=== PATIENT | female | born 1965 | race African-American/Black ===

== ENCOUNTER 2018-03-08 14:33 | Inpatient (IN) | payer OTHER ==
[2018-03-08 18:31] VITALS: BMI 23.1
--- NOTE | 2018-03-08 20:11 | HP ---
CIWA Score - CIWA Score Nausea/Vomitin-Mild Nausea/No Vomiting Muscle Tremors: 4-Moderate,w/Arms Extend Anxiety: 4-Mod. Anxious/Guarded Agitation: 4-Moderately Restless Paroxysmal Sweats: No Perspiration Orientation: 0-Oriented Tacttile Disturbances: 0-None Auditory Disturbances: 0-None Visual Disturbances: 0-None Headache: 0-None Present CIWA-Ar Total Score: 13 Admission ROS BHS - HPI Chief Complaint: Having alcohol withdrawal. Allergies/Adverse Reactions: Allergies Allergy/AdvReac Type Severity Reaction Status Date / Time No Known Allergies Allergy Verified 03/08/18 19:38 History of Present Illness: History years of alcohol use disorder. Last detox attempt 2014. Exam Limitations: No Limitations - Ebola screening Have you been sick,other than usual withdrawal symptoms: No - Review of Systems Constitutional: Loss of Appetite, Unintentional Wgt. Loss (States lost about 20- 30 lbs in the last 6 months.) EENT: reports: No Symptoms Reported, Dental Problems (Missing some teeth. No dental pain.) Respiratory: reports: No Symptoms reported Cardiac: reports: No Symptoms Reported GI: reports: Constipated (BM's every other day. Brown w/o blood.), Nausea, Poor Appetite : reports: No Symptoms Reported Musculoskeletal: reports: Back Pain (Aching pain lower back about 2-3 months. States the pain is a "8". Increases with streass and improves w/ rest and pain medication.) Integumentary: reports: Pruritus (Skin itches.) Neuro: reports: No Symptoms reported Endocrine: reports: Unexplained Weight Loss Hematology: reports: No Symptoms Reported Psychiatric: reports: No Sypmtoms Reported (Denies suicide or violent ideations. ), Orientated x3 Patient History - Patient Medical History Hx Anemia: No Hx Asthma: No Hx Chronic Obstructive Pulmonary Disease (COPD): No Hx Cancer: No Hx Cardiac Disorders: No Hx Congestive Heart Failure: No Hx Hypertension: No Hx Hypercholesterolemia: No Hx Pacemaker: No HX Cerebrovascular Accident: No Hx Seizures: No Hx Dementia: No Hx Diabetes: No Hx Gastrointestinal Disorders: No Hx Liver Disease: Yes (States hx of cirrhosis. Diagnosed at [facility] in 2017. ) Hx Genitourinary Disorders: No Hx Sexually Transmitted Disorders: No Hx Renal Disease (ESRD): No Hx Thyroid Disease: No Hx Human Immunodeficiency Virus (HIV): No (NEGATIVE) Hx Hepatitis C: Yes (about THREE years ago) Hx Depression: Yes (Denies suicide ideation.) Hx Suicide Attempt: No Hx Bipolar Disorder: No (unknown) Hx Schizophrenia: No - Patient Surgical History Past Surgical History: Yes Hx Neurologic Surgery: No Hx Cataract Extraction: No Hx Cardiac Surgery: No Hx Lung Surgery: No Hx Breast Surgery: No Hx Breast Biopsy: No Hx Abdominal Surgery: No Hx Appendectomy: No Hx Cholecystectomy: No Hx Genitourinary Surgery: No Hx Section: No Hx Orthopedic Surgery: No Hx Hysterectomy: Yes (6 YRS. AGO) Other Surgical History: Partial hysterectomy/ R facial fx sx Anesthesia Reaction: No - PPD History Previous Implant?: Yes Documented Results: Negative w/proof Implanted On Prior [facility] Admission?: Yes Date: 06/18/14 Results: 0 MM PPD to be Administered?: Yes - Reproductive History Patient is a Female of Child Bearing Age (11 -55 yrs old): Yes Last Menstrual Period: 08/15/06 (s/p Hysterectormy) Patient : No - Smoking Cessation Smoking history: Current every day smoker Have you smoked in the past 12 months: Yes Aproximately how many cigarettes per day: 3 Hx Chewing Tobacco Use: No Initiated information on smoking cessation: Yes 'Breaking Loose' booklet given: 03/08/18 - Substance & Tx. History Hx Alcohol Use: Yes Hx Substance Use: Yes Substance Use Type: Alcohol, Cocaine, Marijuana Hx Substance Use Treatment: Yes (Last detox at [facility] in 2014. Was able to maintain sobriety for 3-4 months. ) - Substances Abused Alcohol Route: Oral Frequency: Daily Amount used: $50 IN TOTAL : VODKA BOTTLE , BEER , WINE. Age of first use: 16 Date of Last Use: 03/08/18 Cocaine Route: Oral Frequency: Daily Amount used: $20 Age of first use: 16 Date of Last Use: 03/08/18 Marijuana/Hashish Route: Smoking Frequency: Daily Amount used: $20 Age of first use: 16 Date of Last Use: 03/08/18 Family Disease History - Family Disease History Family Disease History: Other: Mother (PSYCH. PROBLEMS AND ADDICTED TO ETOH), Brother (ADDICTED TO DRUGS) Admission Physical Exam BHS - Vital Signs Vital Signs: Vital Signs - 24 hr 04/20/18 18:29 Temperature 96.5 F L Pulse Rate 70 Respiratory 18 Rate Blood Pressure 131/81 - Physical General Appearance: Yes: Appropriately Dressed, Alcohol on Breath, Tremorous, Anxious HEENTM: Yes: EOMI, Hearing grossly Normal, Normal ENT Inspection, Normocephalic , Normal Voice, ERLIN, Other (Missing multiple teeth. (+) dental caries.) Respiratory: Yes: Within Normal Limits Neck: Yes: Within Normal Limits Breast: Yes: Breast Exam Deferred Cardiology: Yes: Within Normal Limits Abdominal: Yes: Within Normal Limits, Normal Bowel Sounds, Non Tender, Soft Genitourinary: Yes: Within Normal Limits Back: Yes: Normal Inspection (FROM. No point tenderness.) Musculoskeletal: Yes: Within Normal Limits Extremities: Yes: Within Normal Limits Neurological: Yes: Within Normal Limits Integumentary: Yes: Normal Color, Dry (Generalized dry skin. No lesions.) Lymphatic: Yes: Within Normal Limits - Diagnostic (1) Alcohol dependence Current Visit: Yes Status: Acute (2) Cannabis dependence Current Visit: Yes Status: Chronic (3) Cocaine dependence Current Visit: Yes Status: Acute (4) Hepatitis C carrier Current Visit: Yes Status: Chronic (5) LOW BACK PAIN Current Visit: Yes Status: Chronic (6) Nicotine dependence Current Visit: Yes Status: Acute (7) Weight loss Current Visit: Yes Status: Chronic Cleared for Admission [facility] - Detox or Rehab [facility] Level of Care: Medically Managed Detox Regimen/Protocol: Librium [facility] Breath Alcohol Content Breath Alcohol Content: 0.165 Urine Pregancy Test - Result Urine Test Results: Negative- NO Line Present Urine Drug Screen - Results Drug Screen Negative: No Urine Drug Screen Results: THC-Marijuana
[2018-03-08] MEDS ORDERED: IBUPROFEN 400 MG TABLET (FP) PO PRN (21:02)
[2018-03-08] MEDS ORDERED: guaiFENesin/D-METHORPHAN HB 10 ML UNIT-DOSE CUPS PO PRN (21:02)
[2018-03-08] MEDS ORDERED: MENTHOL/PHENOL 1 EACH UD MM PRN (21:02)
[2018-03-08] MEDS ORDERED: ACETAMINOPHEN 325 MG TABLET (FP) PO PRN (21:02)
[2018-03-08] MEDS ORDERED: LOPERAMIDE HCL 2 MG CAPSULE PO PRN (21:02)
[2018-03-08] MEDS ORDERED: P-EPHED 60MG/TRIPROLIDI 2.5MG TABLET PO PRN (21:02)
[2018-03-08] MEDS ORDERED: MAG HYDROX/AL HYDROX/SIMETH 30 ML UNIT-DOSE CUP PO PRN (21:02)
[2018-03-08] MEDS ORDERED: MAGNESIUM HYDROX 2400MG/30ML ORAL SUSPENSION 30 ML CUP PO PRN (21:02)
[2018-03-08] MEDS ORDERED: chlordiazePOXIDE HCL 25 MG CAPSULE PO PRN (21:02)
[2018-03-08] MEDS ORDERED: MAGNESIUM CITRATE 300 ML BOTTLE PO PRN (21:02)
[2018-03-08] MEDS ORDERED: AMMONIUM LACTATE 12% LOTION 225 GM BOTTLE TP PRN (21:15)
[2018-03-08] MEDS ORDERED: diphenhydrAMINE HCL 25 MG CAPSULE (FP) PO ONE (21:16)
[2018-03-08] MEDS ORDERED: MELATONIN 5 MG TABLETS PO PRN (22:00)
[2018-03-08] MEDS: THIAMINE HCL 100 MG TABLET (FP) PO SCH (22:09)
[2018-03-08] MEDS: chlordiazePOXIDE HCL 25 MG CAPSULE PO SCH (22:10)
[2018-03-08 23:17] LABS: URINE APPEARANCE SLCLOUDY; URINE BILIRUBIN NEGATIVE (<2.0 mg/dL); URINE BLOOD NEGATIVE (NEGATIVE); URINE COLOR AMBER; URINE GLUCOSE (UA) NEGATIVE (NEGATIVE); URINE KETONE NEGATIVE (NEGATIVE); URINE LEUK ESTERASE NEGATIVE (NEGATIVE); URINE NITRITE NEGATIVE (NEGATIVE); URINE PROTEIN NEGATIVE (NEGATIVE); URINE UROBILINOGEN 4.0 E.U/dl mg/dL (0.2-1.0)
[2018-03-09] MEDS: chlordiazePOXIDE HCL 25 MG CAPSULE PO SCH ×4 (05:46→22:10)
--- NOTE | 2018-03-09 09:52 | EKG ---
Test Reason : Blood Pressure : / mmHG Vent. Rate : 058 BPM Atrial Rate : 058 BPM P-R Int : 162 ms QRS Dur : 080 ms QT Int : 410 ms P-R-T Axes : 058 066 054 degrees QTc Int : 402 ms SINUS BRADYCARDIA WITH SINUS ARRHYTHMIA MINIMAL VOLTAGE CRITERIA FOR LVH, MAY BE NORMAL VARIANT BORDERLINE ECG NO PREVIOUS ECGS AVAILABLE Confirmed by MAYRA JENKINS, PATRICE ([id number]) on 03/09/2018 9:52:31 AM Referred By: Confirmed By:PATRICE NUNEZ MD
[2018-03-09 09:57] LABS: HEMATOCRIT 39.9 % (32.4-45.2); HEMOGLOBIN 12.9 GM/dL (10.7-15.3); MCH 30.4 pg (25.7-33.7); MCHC 32.4 g/dl (32.0-36.0); MEAN PLT VOLUME 10.9 fl (7.5-11.1); PLATELET COUNT 154 K/MM3 (134-434); RBC 4.25 M/mm3 (3.60-5.2); RDW 12.8 % (11.6-15.6); WHITE BLOOD COUNT 4.6 K/mm3 (4.0-10.0)
[2018-03-09] MEDS: PRENATAL VITAMINS W/ FOLIC ACID TABLET (FP) PO SCH (10:11)
[2018-03-09 10:13] LABS: CHLORIDE 108 mmol/L (98-107); POTASSIUM 4.2 mmol/L (3.5-5.1); SODIUM 141 mmol/L (136-145)
[2018-03-09] MEDS: NICOTINE 14 MG/24 HOURS TOPICAL PATCH TD SCH (10:13)
[2018-03-09 10:22] LABS: ALBUMIN 3.6 g/dl (3.4-5.0); ALK PHOS 146 U/L (45-117); ANION GAP 7 (8-16); BILIRUBIN,TOTAL 0.6 mg/dL (0.2-1.0); BLOOD UREA NITROGEN 8 mg/dL (7-18); CALCIUM 9.7 mg/dL (8.5-10.1); CO2 26 mmol/L (21-32); CREATININE 0.6 mg/dL (0.55-1.02); GLUCOSE,RANDOM 65 mg/dL (74-106); SGOT/AST 373 U/L (15-37); SGPT/ALT 325 U/L (12-78); TOT PROT 8.3 g/dl (6.4-8.2)
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
--- NOTE | 2018-03-09 12:56 | PN ---
S CIWA - CIWA Score Nausea/Vomitin Muscle Tremors: 3 Anxiety: 3 Agitation: 3 Paroxysmal Sweats: 2 Orientation: 0-Oriented Tacttile Disturbances: 0-None Auditory Disturbances: 0-None Visual Disturbances: 0-None Headache: 0-None Present CIWA-Ar Total Score: 14 BHS Progress Note (SOAP) Subjective: sweats shakes sleep disturbance Objective: 03/09/18 12:53 A & O x 3 Vital Signs Temperature 99.3 F 03/09/18 09:32 Pulse Rate 70 03/09/18 11:30 Respiratory Rate 20 03/09/18 11:30 Blood Pressure 96/86 03/09/18 09:32 O2 Sat by Pulse Oximetry (%) Laboratory Last Values WBC 4.6 K/mm3 (4.0-10.0) 03/09/18 08:00 RBC 4.25 M/mm3 (3.60-5.2) 03/09/18 08:00 Hgb 12.9 GM/dL (10.7-15.3) 03/09/18 08:00 Hct 39.9 % (32.4-45.2) 03/09/18 08:00 MCV 94.0 fl (80-96) 03/09/18 08:00 MCH 30.4 pg (25.7-33.7) 03/09/18 08:00 MCHC 32.4 g/dl (32.0-36.0) 03/09/18 08:00 RDW 12.8 % (11.6-15.6) 03/09/18 08:00 Plt Count 154 K/MM3 (134-434) D 03/09/18 08:00 MPV 10.9 fl (7.5-11.1) 03/09/18 08:00 Sodium 141 mmol/L (136-145) 03/09/18 08:00 Potassium 4.2 mmol/L (3.5-5.1) 03/09/18 08:00 Chloride 108 mmol/L (98-107) H 03/09/18 08:00 Carbon Dioxide 26 mmol/L (21-32) 03/09/18 08:00 Anion Gap 7 (8-16) L 03/09/18 08:00 BUN 8 mg/dL (7-18) 03/09/18 08:00 Creatinine 0.6 mg/dL (0.55-1.02) 03/09/18 08:00 Creat Clearance w eGFR > 60 (>60) 03/09/18 08:00 Random Glucose 65 mg/dL (74-106) L 03/09/18 08:00 Calcium 9.7 mg/dL (8.5-10.1) 03/09/18 08:00 Total Bilirubin 0.6 mg/dL (0.2-1.0) D 03/09/18 08:00 AST 373 U/L (15-37) H 03/09/18 08:00 ALT 325 U/L (12-78) H 03/09/18 08:00 Alkaline Phosphatase 146 U/L (45-117) H 03/09/18 08:00 Ammonia 55.68 umol/L (11-32) H 03/09/18 08:00 Total Protein 8.3 g/dl (6.4-8.2) H 03/09/18 08:00 Albumin 3.6 g/dl (3.4-5.0) 03/09/18 08:00 Urine Color [place] 03/08/18 21:51 Urine Appearance Slcloudy 03/08/18 21:51 Urine pH 6.0 (5.0-8.0) 03/08/18 21:51 Ur Specific [place] 1.021 (1.001-1.035) 03/08/18 21:51 Urine Protein Negative (NEGATIVE) 03/08/18 21:51 Urine Glucose (UA) Negative (NEGATIVE) 03/08/18 21:51 Urine Ketones Negative (NEGATIVE) 03/08/18 21:51 Urine Blood Negative (NEGATIVE) 03/08/18 21:51 Urine Nitrite Negative (NEGATIVE) 03/08/18 21:51 Urine Bilirubin Negative (<2.0 mg/dL) 03/08/18 21:51 Urine Urobilinogen 4.0 e.u/dl mg/dL (0.2-1.0) H 03/08/18 21:51 Ur Leukocyte Esterase Negative (NEGATIVE) 03/08/18 21:51 RPR Titer Nonreactive (NONREACTIVE) 03/09/18 08:00 HIV 1&2 Antibody Screen Negative 03/09/18 08:00 HIV P24 Antigen Negative 03/09/18 08:00 Labs noted, High ammonia levels Assessment: 03/09/18 12:58 withbelén sx Hyperammonemia Plan: continue detox Lactulose for high ammonia level
[2018-03-09] MEDS: LACTULOSE 20 GM/30 ML UDC (FOR ORAL USE ONLY) PO SCH ×2 (14:05→22:10)
[2018-03-09] MEDS: THIAMINE HCL 100 MG TABLET (FP) PO SCH (22:10)
[2018-03-09] MEDS: ZOLPIDEM TARTRATE 5 MG TABLET PO PRN (22:10)
[2018-03-10] MEDS: LACTULOSE 20 GM/30 ML UDC (FOR ORAL USE ONLY) PO SCH ×3 (05:54→22:09)
[2018-03-10] MEDS: chlordiazePOXIDE HCL 25 MG CAPSULE PO SCH ×3 (05:54→17:57)
[2018-03-10] MEDS: NICOTINE 14 MG/24 HOURS TOPICAL PATCH TD SCH (10:14)
[2018-03-10] MEDS: PRENATAL VITAMINS W/ FOLIC ACID TABLET (FP) PO SCH (10:14)
--- NOTE | 2018-03-10 12:01 | PN ---
S CIWA - CIWA Score Nausea/Vomitin-Mild Nausea/No Vomiting Muscle Tremors: 3 Anxiety: 2 Agitation: 3 Paroxysmal Sweats: 1-Minimal Palms Moist Orientation: 0-Oriented Tacttile Disturbances: 1-Very Mild Itch/Numbness Auditory Disturbances: 0-None Visual Disturbances: 0-None Headache: 1-Very Mild CIWA-Ar Total Score: 12 BHS Progress Note (SOAP) Subjective: sweat tremor trouble sleep at night gi distress anxiety restlessness Objective: 03/10/18 11:57 Vital Signs Temperature 97.9 F 03/10/18 09:53 Pulse Rate 67 03/10/18 09:53 Respiratory Rate 18 03/10/18 09:53 Blood Pressure 119/72 03/10/18 09:53 O2 Sat by Pulse Oximetry (%) Laboratory Last Values WBC 4.6 K/mm3 (4.0-10.0) 03/09/18 08:00 RBC 4.25 M/mm3 (3.60-5.2) 03/09/18 08:00 Hgb 12.9 GM/dL (10.7-15.3) 03/09/18 08:00 Hct 39.9 % (32.4-45.2) 03/09/18 08:00 MCV 94.0 fl (80-96) 03/09/18 08:00 MCH 30.4 pg (25.7-33.7) 03/09/18 08:00 MCHC 32.4 g/dl (32.0-36.0) 03/09/18 08:00 RDW 12.8 % (11.6-15.6) 03/09/18 08:00 Plt Count 154 K/MM3 (134-434) D 03/09/18 08:00 MPV 10.9 fl (7.5-11.1) 03/09/18 08:00 Sodium 141 mmol/L (136-145) 03/09/18 08:00 Potassium 4.2 mmol/L (3.5-5.1) 03/09/18 08:00 Chloride 108 mmol/L (98-107) H 03/09/18 08:00 Carbon Dioxide 26 mmol/L (21-32) 03/09/18 08:00 Anion Gap 7 (8-16) L 03/09/18 08:00 BUN 8 mg/dL (7-18) 03/09/18 08:00 Creatinine 0.6 mg/dL (0.55-1.02) 03/09/18 08:00 Creat Clearance w eGFR > 60 (>60) 03/09/18 08:00 Random Glucose 65 mg/dL (74-106) L 03/09/18 08:00 Calcium 9.7 mg/dL (8.5-10.1) 03/09/18 08:00 Total Bilirubin 0.6 mg/dL (0.2-1.0) D 03/09/18 08:00 AST 373 U/L (15-37) H 03/09/18 08:00 ALT 325 U/L (12-78) H 03/09/18 08:00 Alkaline Phosphatase 146 U/L (45-117) H 03/09/18 08:00 Ammonia 55.68 umol/L (11-32) H 03/09/18 08:00 Total Protein 8.3 g/dl (6.4-8.2) H 03/09/18 08:00 Albumin 3.6 g/dl (3.4-5.0) 03/09/18 08:00 Urine Color [place] 03/08/18 21:51 Urine Appearance Slcloudy 03/08/18 21:51 Urine pH 6.0 (5.0-8.0) 03/08/18 21:51 Ur Specific [place] 1.021 (1.001-1.035) 03/08/18 21:51 Urine Protein Negative (NEGATIVE) 03/08/18 21:51 Urine Glucose (UA) Negative (NEGATIVE) 03/08/18 21:51 Urine Ketones Negative (NEGATIVE) 03/08/18 21:51 Urine Blood Negative (NEGATIVE) 03/08/18 21:51 Urine Nitrite Negative (NEGATIVE) 03/08/18 21:51 Urine Bilirubin Negative (<2.0 mg/dL) 03/08/18 21:51 Urine Urobilinogen 4.0 e.u/dl mg/dL (0.2-1.0) H 03/08/18 21:51 Ur Leukocyte Esterase Negative (NEGATIVE) 03/08/18 21:51 RPR Titer Nonreactive (NONREACTIVE) 03/09/18 08:00 HIV 1&2 Antibody Screen Negative 03/09/18 08:00 HIV P24 Antigen Negative 03/09/18 08:00 lab noted elevation ammonia Assessment: 03/10/18 11:59 withdrawal sx Plan: continue detox lactulose tid repeat ammonia 03/11/18
[2018-03-10] MEDS: THIAMINE HCL 100 MG TABLET (FP) PO SCH (22:09)
[2018-03-10] MEDS: chlordiazePOXIDE 5 MG CAPSULE PO SCH (22:09)
[2018-03-11] MEDS: chlordiazePOXIDE 5 MG CAPSULE PO SCH ×3 (05:29→17:15)
[2018-03-11] MEDS: LACTULOSE 20 GM/30 ML UDC (FOR ORAL USE ONLY) PO SCH ×3 (05:29→22:12)
--- NOTE | 2018-03-11 09:51 | PN ---
S Progress Note (SOAP) Subjective: ALERT,IRRITABLE,ANXIOUS INTERRUPTED SLEEP Objective: 03/11/18 09:51 Vital Signs Temperature 97.9 F 03/11/18 05:00 Pulse Rate 56 L 03/11/18 05:00 Respiratory Rate 18 03/11/18 05:00 Blood Pressure 130/80 03/11/18 05:00 O2 Sat by Pulse Oximetry (%) Assessment: 03/11/18 10:05 WITHDRAWAL SYMPTOM Plan: CONTINUE DETOX,REPEAT ALT,AST,INR,AMMONIA LEVEL PENDING,DISCHARGE IN AM
[2018-03-11] MEDS: NICOTINE 14 MG/24 HOURS TOPICAL PATCH TD SCH (10:33)
[2018-03-11] MEDS: PRENATAL VITAMINS W/ FOLIC ACID TABLET (FP) PO SCH (10:33)
[2018-03-11 14:52] LABS: SGOT/AST 196 U/L (15-37); SGPT/ALT 239 U/L (12-78)
[2018-03-11 15:01] LABS: INR 1.05 (0.82-1.09); PROTHROMBIN TIME (PATIENT) 11.9 SEC (9.7-13.0)
[2018-03-11] MEDS: THIAMINE HCL 100 MG TABLET (FP) PO SCH (22:12)
[2018-03-11] MEDS: ZOLPIDEM TARTRATE 5 MG TABLET PO PRN (22:13)
[2018-03-11] MEDS: chlordiazePOXIDE HCL 10 MG CAPSULE PO SCH (22:13)
[2018-03-12] MEDS: chlordiazePOXIDE HCL 10 MG CAPSULE PO SCH (06:03)
[2018-03-12] MEDS: LACTULOSE 20 GM/30 ML UDC (FOR ORAL USE ONLY) PO SCH (06:03)
[2018-03-12 06:27] VITALS: BP 107/64; PULSE 53; TEMP 97.2
--- NOTE | 2018-03-12 08:26 | PN ---
BHS Progress Note (SOAP) Subjective: ALERT,NO COMPLAINT Objective: 03/12/18 08:24 Vital Signs Temperature 97.2 F L 03/12/18 06:26 Pulse Rate 53 L 03/12/18 06:26 Respiratory Rate 16 03/12/18 06:26 Blood Pressure 107/64 03/12/18 06:26 O2 Sat by Pulse Oximetry (%) 03/12/18 08:24 Laboratory Results - last 24 hr 03/11/18 03/11/18 03/11/18 07:00 11:00 11:00 PT with INR 11.90 INR 1.05 AST 196 H ALT 239 H Ammonia 38.85 H Assessment: DETOX COMPLETED,NO WITHDRAWAL SYMPTOM Plan: DISCHARGE TODAY,FOLLOW UP WITH AFTER CARE PROGRAM ARRANGEMENT
--- NOTE | 2018-03-12 08:29 | DS ---
[facility] Detox Discharge Summary Admission Date: 03/08/18 Discharge Date: 03/12/18 - History Present History: Alcohol Dependence, Cannabis Dependence, Cocaine Dependence Additional Comments: FOLLOW UP WITH AFTER CARE PROGRAM ARRANGEMENT Pertinent Past History: HEPATITIS C NICOTINE DEPENDENCE WEIGHT LOSS - Physical Exam Results Vital Signs: Vital Signs Temperature 97.2 F L 03/12/18 06:26 Pulse Rate 53 L 03/12/18 06:26 Respiratory Rate 16 03/12/18 06:26 Blood Pressure 107/64 03/12/18 06:26 O2 Sat by Pulse Oximetry (%) Pertinent Admission Physical Exam Findings: WITHDRAWAL SIGNS AND SYMPTOM Laboratory Last Values WBC 4.6 K/mm3 (4.0-10.0) 03/09/18 08:00 RBC 4.25 M/mm3 (3.60-5.2) 03/09/18 08:00 Hgb 12.9 GM/dL (10.7-15.3) 03/09/18 08:00 Hct 39.9 % (32.4-45.2) 03/09/18 08:00 MCV 94.0 fl (80-96) 03/09/18 08:00 MCH 30.4 pg (25.7-33.7) 03/09/18 08:00 MCHC 32.4 g/dl (32.0-36.0) 03/09/18 08:00 RDW 12.8 % (11.6-15.6) 03/09/18 08:00 Plt Count 154 K/MM3 (134-434) D 03/09/18 08:00 MPV 10.9 fl (7.5-11.1) 03/09/18 08:00 PT with INR 11.90 SEC (9.7-13.0) 03/11/18 11:00 INR 1.05 (0.82-1.09) 03/11/18 11:00 Sodium 141 mmol/L (136-145) 03/09/18 08:00 Potassium 4.2 mmol/L (3.5-5.1) 03/09/18 08:00 Chloride 108 mmol/L (98-107) H 03/09/18 08:00 Carbon Dioxide 26 mmol/L (21-32) 03/09/18 08:00 Anion Gap 7 (8-16) L 03/09/18 08:00 BUN 8 mg/dL (7-18) 03/09/18 08:00 Creatinine 0.6 mg/dL (0.55-1.02) 03/09/18 08:00 Creat Clearance w eGFR > 60 (>60) 03/09/18 08:00 Random Glucose 65 mg/dL (74-106) L 03/09/18 08:00 Calcium 9.7 mg/dL (8.5-10.1) 03/09/18 08:00 Total Bilirubin 0.6 mg/dL (0.2-1.0) D 03/09/18 08:00 AST 196 U/L (15-37) H 03/11/18 11:00 ALT 239 U/L (12-78) H 03/11/18 11:00 Alkaline Phosphatase 146 U/L (45-117) H 03/09/18 08:00 Ammonia 38.85 umol/L (11-32) H 03/11/18 07:00 Total Protein 8.3 g/dl (6.4-8.2) H 03/09/18 08:00 Albumin 3.6 g/dl (3.4-5.0) 03/09/18 08:00 Urine Color [place] 03/08/18 21:51 Urine Appearance Slcloudy 03/08/18 21:51 Urine pH 6.0 (5.0-8.0) 03/08/18 21:51 Ur Specific [place] 1.021 (1.001-1.035) 03/08/18 21:51 Urine Protein Negative (NEGATIVE) 03/08/18 21:51 Urine Glucose (UA) Negative (NEGATIVE) 03/08/18 21:51 Urine Ketones Negative (NEGATIVE) 03/08/18 21:51 Urine Blood Negative (NEGATIVE) 03/08/18 21:51 Urine Nitrite Negative (NEGATIVE) 03/08/18 21:51 Urine Bilirubin Negative (<2.0 mg/dL) 03/08/18 21:51 Urine Urobilinogen 4.0 e.u/dl mg/dL (0.2-1.0) H 03/08/18 21:51 Ur Leukocyte Esterase Negative (NEGATIVE) 03/08/18 21:51 RPR Titer Nonreactive (NONREACTIVE) 03/09/18 08:00 HIV 1&2 Antibody Screen Negative 03/09/18 08:00 HIV P24 Antigen Negative 03/09/18 08:00 Vital Signs Temperature 97.2 F L 03/12/18 06:26 Pulse Rate 53 L 03/12/18 06:26 Respiratory Rate 16 03/12/18 06:26 Blood Pressure 107/64 03/12/18 06:26 O2 Sat by Pulse Oximetry (%) - Treatment Hospital Course: Detox Protocol Followed, Detoxed Safely, Responded well, Discharged Condition Good Patient has Accepted a Rehab Referral to: DECLINED - Medication Discharge Medications: Ambulatory Orders Paroxetine HCl [Paxil -] 20 mg PO DAILY #30 tablet 03/29/15 - Diagnosis (1) Alcohol dependence with uncomplicated withdrawal Current Visit: Yes Status: Acute (2) Cocaine dependence, uncomplicated Current Visit: Yes Status: Acute (3) Cocaine dependence Current Visit: Yes Status: Acute (4) LOW BACK PAIN Current Visit: Yes Status: Chronic (5) Weight loss Current Visit: Yes Status: Chronic (6) Increased ammonia level Current Visit: Yes Status: Acute (7) Hepatitis C Current Visit: Yes Status: Acute - AMA Did Patient Leave Against Medical Advice: No
== END 2018-03-12 09:05 | disposition home or self-care (01) | DRG 774 ==
LOC: YASAS 14:33 → Y6N 20:33
PROVIDERS: ADMIT Internal Medicine; ATTEND Internal Medicine
PROC: HZ2ZZZZ Detoxification Services for Substance Abuse Treatment (ICD-10-PCS; principal; 2018-03-08)
DX: F10.230 Alcohol dependence with withdrawal, uncomplicated (principal); F14.20 Cocaine dependence, uncomplicated; F12.20 Cannabis dependence, uncomplicated; F17.210 Nicotine dependence, cigarettes, uncomplicated; F19.24 Other psychoactive substance dependence with psychoactive substance-induced mood disorder; B18.2 Chronic viral hepatitis C; F32.9 Major depressive disorder, single episode, unspecified; M54.5 Low back pain; R79.89 Other specified abnormal findings of blood chemistry; E72.20 Disorder of urea cycle metabolism, unspecified; K74.60 Unspecified cirrhosis of liver; Z59.0 Homelessness
CPT/HCPCS: 36415; 80053; 81003; 82140; 84450; 84460; 85027; 85610; 86593; 87389; 93005; 93010